=== PATIENT | male | born 1965 | race American Indian/Alaskan Native ===

== ENCOUNTER 2019-08-30 07:06 | Observation (INO) | payer BC ==
[2019-08-30] MEDS ORDERED: SODIUM CHLORIDE 0.9% 500 ML 500 ML ONE (07:35)
[2019-08-30 08:06] LABS: Basophils % (Auto) 1.1 % (0.0-1.8); Eosinophils # (Auto) 0.2 K/mm3 (0.0-0.4); Hemoglobin 13.7 gm/dl (11.8-15.2); Lymphocytes # (Auto) 1.7 K/mm3 (1.2-5.4); Lymphocytes % (Auto) 38.8 % (13.4-35.0); Mean Corpuscular HGB Conc 33 % (32-34); Mean Corpuscular Volume 87 fl (84-94); Monocytes # (Auto) 0.4 K/mm3 (0.0-0.8); Monocytes % (Auto) 8.5 % (0.0-7.3); Platelet Count 237 K/mm3 (140-440); Red Blood Count 4.84 M/mm3 (3.65-5.03); Red Cell Distribution Width 13.9 % (13.2-15.2)
[2019-08-30 08:10] LABS: INR 0.97 (0.87-1.13)
[2019-08-30] MEDS: SODIUM CHLORIDE 0.9% 500 ML 500 ML IV SCH ×2 (08:18→09:26)
[2019-08-30 08:19] LABS: BUN/Creatinine Ratio 14; Blood Urea Nitrogen 14 mg/dL (9-20); Calcium 9.3 mg/dL (8.4-10.2); Hemolysis Index 7
[2019-08-30] MEDS ORDERED: VERAPAMIL 5 MG/2 ML INJ ONE (08:28)
[2019-08-30] MEDS ORDERED: HEPARIN/NS 5000 UNIT/500ML 1,000 ML IR ONE (08:28)
[2019-08-30] MEDS ORDERED: ASPIRIN EC 81 MG TAB PO ONE (09:00)
[2019-08-30] MEDS: MIDAZOLAM 2 MG/2 ML INJ ONE ×2 (09:25→09:33)
[2019-08-30] MEDS: LIDOCAINE (2%) 20 MG/1 ML VIAL 20 ML MDV INFILTRATI ONE ×2 (09:25→09:38)
[2019-08-30] MEDS: fentaNYL 100 MCG/2 ML INJ ONE ×2 (09:25→09:33)
[2019-08-30] MEDS: HEPARIN 10,000 UNITS/10 ML VIAL ONE ×2 (10:10→10:52)
[2019-08-30] MEDS ORDERED: ALUM-MAG HYDROXIDE-SIMETHICONE 200-200-20MG/5ML ORAL LIQD 30 ML PO ONE (10:59)
[2019-08-30] MEDS ORDERED: CLOPIDOGREL 300 MG TAB PO ONE (10:59)
--- NOTE | 2019-08-30 12:10 | Cardiac Catherization Report ---
CARDIAC CATHETERIZATION AND CORONARY INTERVENTION REPORT INDICATION FOR PROCEDURE: The patient is a 53-year-old -[place] gentleman with history of coronary artery disease, underwent bypass surgery in 09/2017 with left internal mammary to the LAD, saphenous vein graft to the proximal diagonal branch, saphenous vein graft to the obtuse marginal branch 1 and also saphenous vein graft to the PDA. The patient presently is having increasing symptoms of tiredness and shortness of breath and he is not able to do his usual activities. When he walks up steps or when he walks in the driveway, he is getting tired and getting short of breath for last 2 months, which is getting worse. He underwent a stress EKG performed yesterday, which showed significant ST depressions along with chest pain. Hence, the patient is scheduled for cardiac catheterization. The patient is on appropriate medication including Imdur, amlodipine, in addition to ranolazine and beta tej. The patient is on Plavix. Considering his symptomatology with significant abnormality on the stress EKG, the patient was scheduled for cardiac catheterization. The patient is aware of the procedure, potential complications and alternatives of therapy available. DESCRIPTION OF PROCEDURE: The patient was brought to the catheterization laboratory in a fasting condition. The patient was evaluated for moderate sedation and he was felt to be appropriate candidate for moderate sedation. The patient received IV Versed and fentanyl starting at 9:33 a.m. Subsequently, the patient was monitored with pulse oximetry, EKG monitoring and hemodynamic monitoring throughout. Local anesthesia was given in the right groin. Right femoral artery access was obtained under fluoroscopy using 5-Nigerien micropuncture needle. Subsequently, 5-Nigerien slender sheath was introduced. A 5-Nigerien multipurpose catheter was used to obtain the angiograms of all the 3 vein grafts and left ventriculogram done in [place] projection using hand injection and also right coronary angiogram and left coronary angiogram were obtained. Subsequently, angiograms of the left internal mammary graft were obtained using a 5-Nigerien mammary catheter. At the end of the procedure, it was felt that the patient would benefit from intervention of the second obtuse marginal branch and procedure was converted into interventional procedure. Following findings were noted on the coronary angiography and left ventriculogram. HEMODYNAMICS: 1. Opening aortic pressure 123/71, left ventricular pressure 124/20. No gradient across the aortic valve. Estimated ejection fraction more than 65%. 2. Left ventriculogram done in [place] projection showed normal-sized left ventricle with excellent contractility. Only limited amount of dye was injected. 3. Right coronary artery is dominant vessel. This shows severe stenosis in the proximal one-third and occlusion in the middle part. Distal RCA is not visualized on antegrade injection. 4. Saphenous vein graft to the PDA was injected and this graft is very large, smooth without any significant disease. PDA and LV branches are without any significant disease. 5. Left coronary artery angiogram showed left main to be without significant disease. Ostial occlusion of the LAD noted with no antegrade visualization of the LAD. Circumflex artery is represented by anterolateral branch that is OM1 branch, also OM2 branch, which is a medium-sized vessel in addition to the branch in the AV groove. OM1 branch showed diffuse disease in the proximal and mid third and distally, this branch is widely patent without significant disease and well supplied by a widely patent saphenous vein graft to this branch. 6. Second obtuse marginal branch showed significant disease in the proximal and middle half. However, in the middle one-third, there is a severe lesion focal 90% in addition to diffuse disease in the proximal and mid third. Distally, the vessel is medium-sized vessel, approximately 2.5 mm in size. However, distal vessel is without significant disease. Circumflex artery in the AV groove without significant disease. 7. Saphenous vein graft to the diagonal branch itself is widely patent and diagonal branch without significant disease. 8. Left internal mammary graft to the distal LAD is patent, but has side branches along with very small caliber 1 mm or less and he is attached to the very distal LAD. On injection of this graft, only very distal LAD is visualized with no visualization of the mid LAD or any diagonal branches. 9. On injection of the left coronary artery and also on injection of the RCA and injection of the vein graft to the obtuse marginal branch, there is a tendency to visualization of the proximal LAD through collaterals. At this time, the patient has a significant disease in the second obtuse marginal branch and also mammary graft to the LAD appears to be very small, probably not enough blood flow to supply the entire LAD territory. INTERVENTION OF THE SECOND OBTUSE MARGINAL BRANCH: The patient was noted to have very significant 90% focal lesion in the second obtuse marginal branch in addition to diffuse disease. Distally, the vessel is 2.5 mm or so in caliber without any significant disease.Considering patient's significant symptoms,will proceed with intervention of this lesion. The patient was given heparin 6000 units bolus. Subsequently, left coronary artery was engaged with EBU 3.5 guiding catheter. Initially, attempt was made to perform iFR and setup was done. However, the wire could not be advanced beyond the lesion because of tightness of the lesion and is not advancing distal to the lesion. Hence, considering the severity of the lesion and symptoms, it was felt that the patient would benefit from intervention of this marginal branch. Pressure wire was replaced with a 0.014-inch [place] XT guidewire, which was advanced through the lesion without difficulty. Lesion was dilated with 2.5 x 15 mm balloon to 10 atmospheres followed by placement of a 2.5 x 18 mm [place] Resolute stent inflated to 14 atmospheres with very good result. A step up and step down was noted. No proximal or distal dissection noted. TOMÁS 3 flow was noted pre and post-procedure. The patient tolerated the intervention well without any significant chest pain or EKG changes. No evidence of perforation or embolization or dissection noted. After obtaining the final angiograms, guidewire and guiding sheath were removed. The patient was given 300 mg of Plavix in the catheterization laboratory. Patient's condition was monitored for any side effects from moderate sedation through out procedure with pulse oximetry,EKG and hemodynamic monitoring.Patient tolerated sedation well,monitoring ended at 10:44 AM,at end of procedure is communicating normally along with no focal deficits. No hematoma noted in the right groin and manual pressure will be applied to remove the sheath when the ACT is less than 180 seconds. His ACT was found to be 280 seconds. Extra dose of heparin 3000 units was given. FINAL IMPRESSION: Uncomplicated drug-eluting stent placement of the second obtuse marginal branch with 2.5 x 18 mm Resolute [place] stent. iFR was attempted; however, wire could not cross the lesion; hence, measurements were not obtained. The patient will be monitored overnight. At this time, we may need to further evaluate to see if the left internal mammary graft has enough caliber to supply the entire LAD. Considering the patient is having collaterals to LAD from multiple vessels, the patient may benefit from intervention of the chronically occluded LAD if the patient's symptoms do not improve in the next few weeks. Findings were explained to the patient and . They understand. [facility]# [id number] MARITZA/GALDINO RENEE
[2019-08-30] MEDS: METOPROLOL TARTRATE 25 MG TAB PO SCH (21:00)
[2019-08-31 06:01] LABS: Basophils % (Auto) 0.6 % (0.0-1.8); Eosinophils # (Auto) 0.2 K/mm3 (0.0-0.4); Eosinophils % (Auto) 4.5 % (0.0-4.3); Hematocrit 41.5 % (35.5-45.6); Hemoglobin 13.4 gm/dl (11.8-15.2); Lymphocytes # (Auto) 1.4 K/mm3 (1.2-5.4); Lymphocytes % (Auto) 27.9 % (13.4-35.0); Mean Corpuscular HGB Conc 32 % (32-34); Mean Corpuscular Volume 87 fl (84-94); Monocytes # (Auto) 0.3 K/mm3 (0.0-0.8); Monocytes % (Auto) 6.6 % (0.0-7.3); Platelet Count 240 K/mm3 (140-440); Red Blood Count 4.79 M/mm3 (3.65-5.03)
[2019-08-31 06:17] LABS: Creatine Kinase MB 2.6 ng/mL (0.0-4.0)
[2019-08-31 06:18] LABS: BUN/Creatinine Ratio 11; Blood Urea Nitrogen 14 mg/dL (9-20); Calcium 8.9 mg/dL (8.4-10.2); Hemolysis Index 15
--- NOTE | 2019-08-31 08:23 | XRay Report ---
CHEST 1 VIEW INDICATION / CLINICAL INFORMATION: post pci. COMPARISON: None available. FINDINGS: SUPPORT DEVICES: None. HEART / MEDIASTINUM: No significant abnormality. Postsurgical changes following suspected coronary [place] bypass graft surgery. LUNGS / PLEURA: Slight blunting of left costophrenic sulcus, possibly atelectasis and/or trace effusi on. ADDITIONAL FINDINGS: No significant additional findings. IMPRESSION: Slight blunting of left costophrenic sulcus, possibly atelectasis and/or trace effusion. Signer Name: Charly Villalpando MD Signed: 08/31/2019 8:18 AM Workstation Name: [id number]
[2019-08-31 09:08] VITALS: BP 124/74
[2019-08-31] MEDS ORDERED: CLOPIDOGREL 75 MG TAB PO SCH (10:00)
[2019-08-31] MEDS ORDERED: ASPIRIN 81 MG TAB CHEW PO SCH (10:00)
[2019-08-31] MEDS: METOPROLOL TARTRATE 25 MG TAB PO SCH (10:14)
--- NOTE | 2019-08-31 10:53 | Short Stay Summary ---
Short Stay Documentation Date of service: 08/31/19 - History H&P: obtained from office - Allergies and Medications Current Medications: Allergies No Known Allergies Allergy (Verified 08/30/19 07:32) Home Medications Medication Instructions Recorded Confirmed Last Taken Type Aspirin [Adult Aspirin] 81 mg PO DAILY 08/30/19 08/30/19 08/30/19 History Clopidogrel [Plavix] 75 mg PO DAILY 08/30/19 08/30/19 08/30/19 History Furosemide [Lasix TAB] 20 mg PO DAILY 08/30/19 08/30/19 08/29/19 History ISOSORBIDE MONOnitrate [Imdur ER] 60 mg PO QDAY 08/30/19 08/30/19 08/29/19 History Metoprolol [Lopressor] 25 mg PO BID 08/30/19 08/30/19 08/29/19 History Nitroglycerin [Nitrostat] 0.4 mg SL Q5M PRN 08/30/19 08/30/19 Unknown History Ranolazine [Ranolazine ER] 500 mg PO DAILY 08/30/19 08/30/19 08/29/19 History amLODIPine [Norvasc] 5 mg PO DAILY 08/30/19 08/30/19 08/29/19 History Active Medications Aspirin (Baby Aspirin) 81 mg PO QDAY [facility] Last Admin: 08/31/19 10:15 Dose: 81 mg Documented by: Atorvastatin Calcium (Lipitor) 40 mg PO QHS [facility] Last Admin: 08/30/19 21:01 Dose: 40 mg Documented by: Clopidogrel Bisulfate (Plavix) 75 mg PO QDAY [facility] Last Admin: 08/31/19 10:14 Dose: 75 mg Documented by: Isosorbide Mononitrate (Imdur) 60 mg PO QDAY [facility] Last Admin: 08/31/19 10:14 Dose: 60 mg Documented by: Metoprolol Tartrate (Metoprolol) 25 mg PO BID [facility] Last Admin: 08/31/19 10:14 Dose: 25 mg Documented by: - Physical exam General appearance: no acute distress Integumentary: no rash, no growths, no abnormal pigmentation, other (right femoral LHC site c/d/i, no bleeding or hematoma) HEENT: Atraumatic, PERRLA, EOMI Lungs: Clear to auscultation Heart: Regular rate, Normal S1, Normal S2 Gastrointestinal: normal, normoactive bowel sounds Extremities: no ischemia, pulses intact, pulses symmetrical, No edema, normal temperature Neurological: Normal gait, Normal speech, Strength at 5/5 X4 ext - Brief post op/procedure progress note Date of procedure: 08/30/19 Pre-op diagnosis: CAD Post-op diagnosis: same Procedure: LHC with PCI - see dictated cath report Anesthesia: local Estimated blood loss: none Condition: stable - Disposition Condition at discharge: Good Disposition: [id number] TO HOME OR SELFCARE - Discharge Diagnoses (1) CAD (coronary artery disease) Status: Chronic (2) History of coronary artery bypass graft Status: Chronic (3) Stented coronary artery Status: Chronic Short Stay Discharge Plan Activity: advance as tolerated Diet: low fat, low cholesterol, low salt Wound: open to air, keep clean and dry, per your surgeon's advice Follow up with: PRIMARY CARE, [Primary Care Provider] - 7 Days JAY DEJESUS MD [Staff Physician] - 7 Days Prescriptions: AtorvaSTATin [Lipitor] 40 mg PO QHS #30 tablet
== END 2019-08-31 13:00 | disposition home or self-care (01) ==
LOC: CATHLABREC 07:06 → 4A 11:27
PROVIDERS: ADMIT Internal Medicine; ATTEND Internal Medicine
DX: I25.10 Atherosclerotic heart disease of native coronary artery without angina pectoris (principal); Z95.1 Presence of aortocoronary bypass graft; Z98.61 Coronary angioplasty status; Z79.82 Long term (current) use of aspirin; Z79.899 Other long term (current) drug therapy; Z79.01 Long term (current) use of anticoagulants
CPT/HCPCS: 36415; 71045; 80048; 82550; 82553; 84484; 85025; 85347; 85610; 85730; 93005; 93010; 93459; 93571; A9270; C1725; C1769; C1874; C1887; C1894; C9600; G0378; J1644; J2250; J3010; J7040; 92928; Q9967